=== PATIENT | female | born 1995 | race Caucasian/White ===

== ENCOUNTER 2017-02-13 22:21 | Emergency (ER) | payer BC ==
[~2017-02-13] VITALS: Ht 149.9 cm; Wt 45.0 kg
[2017-02-13 22:28] VITALS: TEMP 36.5; Ht 149.9 cm; Wt 45.0 kg
[2017-02-13] MEDS ORDERED: BCPILLS PO (22:45)
[2017-02-13] MEDS ORDERED: RANI150T3 PO (22:45)
--- NOTE | 2017-02-13 23:31 | EMERGENCY ROOM VISIT NOTE ---
History First contact with patient: 22:33 Chief Complaint: RIB PAIN Stated Complaint: PAIN BELOW RT ARMPIT- RIB History of Present Illness The patient is a 21 year old female who presents to the Emergency Room with complaints of right rib pain 4 days. The patient states she has had some pain in the right lateral ribs, just under the axilla for the past 4 days. 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 She denies any shortness of breath. She does take control pills. She does not smoke. She denies recent travel. She denies history or family history of blood clots. She states that the pain is worse with movement, deep breath or coughing. She has not been taking any medication for the pain. Review of Systems A complete 10 point review of systems was reviewed with the patient with pertinent positives and negatives as per history of present illness. All else were negative. Social History Smoking Status: Never Smoker Current/Historical Medications Scheduled Control Pills ( Control Pills), 1 TAB PO DAILY Ranitidine Hcl (Zantac), 150 MG PO QAM Physical Exam Vital Signs Date Time Temp Pulse Resp B/P (MAP) Pulse Ox O2 Delivery O2 Flow Rate FiO2 02/13/17 23:36 70 18 124/58 100 02/13/17 22:28 36.5 91 20 127/84 99 Room Air Physical Exam VITALS: Vitals are noted on the nurse's note and reviewed by myself. Vital signs stable. GENERAL: This is a 21-year-old female, in no acute distress, nondiaphoretic, well-developed well-nourished. SKIN: The skin was without rashes, erythema, edema, or bruising. HEART: Regular rate and rhythm without murmurs gallops or rubs. LUNGS: Clear to auscultation bilaterally without wheezes, rales or rhonchi. ABDOMEN: Soft, nontender, without masses or organomegaly. MUSCULOSKELETAL: There is reproducible tenderness to palpation across the right lateral ribs. No ecchymosis noted. NEURO: Patient was alert and oriented to person place and time. Medical Decision & Procedures ER Provider Diagnostic Interpretation: CHEST W/ RIGHT RIB DETAIL: No obvious fractures noted. No pneumothorax. No lobar consolidation. Medical Decision Differential diagnosis includes rib fracture, rib contusion, rib sprain, pulmonary embolism, herpes zoster, pneumonia, among others. The patient is a 21-year-old female who presents today complaining of right- sided rib pain. The patient does have significant tenderness on evaluation. Her pain is worse with deep breath, cough and movement. A chest x-ray with right rib detail was performed and reviewed by myself and does not show any obvious fractures or cardiopulmonary abnormalities. There is no overlying rash. The patient does not have any associated shortness of breath or pain in the chest. She is not high risk for pulmonary embolism and PERC rule is negative, making PE extremely unlikely. The patient was advised to take anti- inflammatories and follow-up with [facility] services as needed. Based on the patient's presentation and work up, I feel the patient is stable for outpatient treatment. The patient was educated to return to the emergency department for any worsening of their current condition or new/concerning symptoms. She will follow up with S as needed. Medication Reconcilliation Current Medication List: was personally reviewed by me Blood Pressure Screening Patient's blood pressure: Normal blood pressure Impression Primary Impression: Rib pain on right side Departure Information Dispostion Home / Self-Care Condition GOOD Referrals [facility] (PCP) Patient Instructions My [facility] Additional Instructions Ibuprofen, 600 mg every 6 hours for the next 3-4 days or until symptoms have resolved. You may apply ice to the ribs for relief. Follow-up with [facility] if you have persistent or worsening pain. Return here for worsening symptoms despite the above plan, shortness of breath, coughing up blood, or any other new/concerning symptoms.
[2017-02-13 23:36] VITALS: BP 124/58; PULSE 70; O2SAT 100
--- NOTE | 2017-02-14 07:12 | DIAGNOSTIC IMAGING REPORT ---
PA CHEST WITH RIGHT-SIDED RIB SERIES CLINICAL HISTORY: Right-sided chest wall pain. FINDINGS: A PA chest radiograph with 2 additional views from a right-sided rib series is obtained. No prior studies are available for comparison at the time of dictation. The cardiomediastinal silhouette is unremarkable. The lungs and pleural spaces are clear. No pneumothorax is seen. There is no radiographic evidence of right-sided rib fracture on the rib series. The remainder of the bony thorax is grossly intact. A naval piercing is noted. IMPRESSION: 1. No active disease in the chest. 2. There is no radiographic evidence of right-sided rib fracture. Electronically signed by: Guru Larsen M.D. 02/14/2017 7:11 AM Dictated Date/Time: 02/14/2017 7:01 AM
== END 2017-02-13 23:36 | disposition home or self-care (01) ==
LOC: C.EDB 22:23 → C.EDA 23:36
DX: R07.82 Intercostal pain (principal); Z79.3 Long term (current) use of hormonal contraceptives